=== PATIENT | male | born 1975 | race Caucasian/White ===

== ENCOUNTER 2016-06-29 21:06 | Emergency (ER) | payer BC ==
[2016-06-29] MEDS ORDERED: Lidocaine/EPINEPHrine/Tetracaine Soln 1 ML TOP ONE (21:33)
[2016-06-29] MEDS ORDERED: Lidocaine 1% 10 ML MDV INJECT ONE (22:31)
[2016-06-29] MEDS ORDERED: Bupivacaine 0.5% 10 ML SDV INJECT ONE (22:32)
[2016-06-29] MEDS ORDERED: Lidocaine 1% 50 ML MDV INJECT ONE (22:44)
--- NOTE | 2016-06-29 23:05 | EDM.PDOC ---
ED HPI Skin/Rash - General Chief Complaint: Laceration Stated Complaint: CUT LEFT THUMB Time Seen by Provider: 06/29/16 21:15 Source: Reports: Patient, RN notes reviewed History Limitations: Reports: No limitations - History of Present Illness INITIAL COMMENTS - FREE TEXT/NARRATIVE: The patient states that he was scoring tile around 21:00 tonight, when the utility knife he was using slipped and lacerated his left thumb. He is otherwise uninjured. His last tetanus vaccination was this past December 2015. - Related Data Allergies Allergy/AdvReac Type Severity Reaction Status Date / Time No Known Allergies Allergy Verified 06/29/16 21:19 Home Meds: Ambulatory Orders Medication Instructions Recorded Confirmed . [No Known Home Meds] 06/29/16 06/29/16 Past Medical History - Past Surgical History HEENT Surgical History: Reports: Oral surgery ([place] teeth extraction) Male Surgical History: Reports: Vasectomy Social & Family History - Family History Family Medical History: Noncontributory - Tobacco Use Smoking Status *Q: Never Smoker - Alcohol Use Alcohol Use History: Yes Alcohol Use Frequency: Socially - Recreational Drug Use Recreational Drug Use: No - Living Situation & Occupation Living situation: Reports: , with spouse, with family (2 kids) Occupation: employed (answering service agent) ED ROS GENERAL - Review of Systems Review Of Systems: See Below Constitutional: Reports: no symptoms HEENT: Reports: No symptoms Respiratory: Reports: No Symptoms Cardiovascular: Reports: No symptoms Endocrine: Reports: no symptoms GI/Abdominal: Reports: No symptoms : Reports: no symptoms Musculoskeletal: Reports: no symptoms Skin: Reports: no symptoms Neurological: Reports: No Symptoms Psychiatric: Reports: No symptoms Hematologic/Lymphatic: Reports: no symptoms Immunologic: Reports: no symptoms ED EXAM, SKIN/RASH Exam: See Below Exam Limited By: No limitations General Appearance: alert, WD/WN, no apparent distress Extremities: other (There is an approximately 3 cm linear laceration to the dorsum of the left thumb, over the ulnar aspect of the IP joint, extending medially and approximately to the palmar/ulnar aspect of the thumb just proximal to the IP joint. Neurovascular status of the left thumb is intact. No teninous or ligamentous injury.) ED SKIN PROCEDURES - Laceration/Wound Repair Left Finger Lac/wound length in cm: 3.0 Appearance: subcutaneous, linear, clean Distal NVT: neuro & vascular intact, no tendon injury Anesthetic type: topical (LET) Skin prep: providone-iodine (betadine), saline Exploration/Debridement/Repair: wound explored, in a bloodless field, explored to base, no foreign material found, wound margins revised Closed with: sutures Suture size: 3-0 # of sutures: 6 Suture type: nylon, interrupted, simple Sterile dressing applied: nurse Tetanus status addressed: Yes Complications: No Course - Vital Signs Last Recorded V/S: Last Vital Signs Temp 36.8 C 06/29/16 21:14 Pulse 78 06/29/16 23:10 Resp 18 06/29/16 23:10 BP 114/74 06/29/16 23:10 Pulse Ox 97 06/29/16 23:10 - Orders/Labs/Meds Meds: Medications Discontinued Medications Generic Name Dose Route Start Last Admin Trade Name Brennan PRN Reason Stop Dose Admin Bupivacaine HCl 10 ml 06/29/16 22:32 06/29/16 23:03 Sensorcaine-Mpf 0.5% INJECT 06/29/16 22:33 10 ml ONETIME ONE Administration Lidocaine HCl 10 ml 06/29/16 22:31 Xylocaine 1% INJECT 06/29/16 22:32 ONETIME ONE Lidocaine HCl 50 ml 06/29/16 22:44 06/29/16 23:03 Xylocaine 1% INJECT 06/29/16 22:45 50 ml ONETIME ONE Administration Lidocaine/Tetracaine 2 ml 06/29/16 21:33 06/29/16 21:40 Let Soln TOP 06/29/16 21:34 2 ml ONETIME ONE Administration Departure - Departure Time of Disposition: 23:03 Disposition: Home, Self-Care 01 Condition: good Clinical Impression: Laceration of left thumb Instructions: Laceration Care, Adult Referrals: Jose Herrera MD [Primary Care Provider] - Forms: ED Department Discharge Additional Instructions: You were seen in the emergency room tonight after cutting your left thumb with a utility knife. Your wound was closed with 6 sutures. Keep the wound clean with ordinary soap and water. Pat dry, then placed a Band- Aid over the wound, daily. If the Band-Aid gets wet ordered, please re-clean your wound and apply a fresh Band-Aid. We DO NOT recommend you apply antibiotic ointment. Your sutures should be ready for removal by 07/07/2016. This can be done at the walk-in clinic, at your doctor's office, or back in the ER. Your wound should not get infected, however, if there are any concerns about an infection, please followup with your PCP or return to the ER.
[2016-06-29 23:15] VITALS: BP 114/74
== END 2016-06-29 23:10 | disposition home or self-care (01) ==
LOC: JD.ED 21:06
DX: S61.012A Laceration without foreign body of left thumb without damage to nail, initial encounter (principal); W26.0XXA Contact with knife, initial encounter
CPT/HCPCS: 12002; 99283; A9270; 99282